=== PATIENT | female | born 1960 | race Caucasian/White ===

== ENCOUNTER 2020-04-21 18:33 | Observation (INO) | payer MEDICARE, MEDICAID ==
--- NOTE | 2020-04-21 19:24 | PDOC.FPRHP ---
- History of Present Illness Chief Complaint: Altered mental status History of Present Illness: This is a 59yo F here today with CC of soreness after a fall. She was transferred from an outside hospital for AMS. She fell last night at her house, she tripped over a raised area. Her friend helped her up. She has since felt very sore. She states she did not hit her head. Denies dizziness, lightheadedness, chest pain, SOB, palpitations, swelling, NVD, fever, chills. Patient is a poor historian. Reports she lives at home alone. Per daughter, patient fell outside and fell forward last night while walking to her car. She went to the ED this AM bc she was feeling confused. Baseline she holds conversation and is mentally alert. She is very weak and has difficulty physically holding a conversation. She was in the ICU last year for 13 weeks 2/2 pacemaker placement and complications including ARF, Peptic ulcer perforation. She does not have a pacemaker, EF is ~20% at last visit. Patient has never OD'd on medications but is on chronic pain medication. She does not follow with pain management per daughter. ED Course: Txfr from [facility] [place], w/u included CTH, CT cervical spine, and CXR that all showed no acute processes. At [facility], given 1 banana bag. - Allergies/Adverse Reactions Allergies Allergy/AdvReac Type Severity Reaction Status Date / Time No Known Drug Allergies Allergy Verified 01/03/20 01:49 - Home Medications Medication Instructions Recorded Confirmed Type Atorvastatin Calcium [Lipitor] 80 mg PO HS 01/03/20 01/03/20 History Biotin 5,000 mcg PO DAILY 01/03/20 01/03/20 History Carvedilol 1 tab PO BID 01/03/20 01/03/20 History Empagliflozin [Jardiance] 25 mg PO BID 01/03/20 01/03/20 History Ezetimibe [Zetia] 10 mg PO HS 01/03/20 01/03/20 History Furosemide [Lasix] 40 mg PO DAILY 01/03/20 01/03/20 History Glimepiride 1 mg PO DAILY 01/03/20 01/03/20 History HYDROcodone/Acetaminophen 1 tab PO PRN PRN 01/03/20 01/03/20 History [Hydrocodone-Acetamin 10-300 mg] Morphine Sulfate [Morphine Sulfate 30 mg PO PRN PRN 01/03/20 01/03/20 History ER] Ondansetron [Zofran ODT] 8 mg PO PRN PRN 01/03/20 01/03/20 History Pantoprazole [Protonix] 40 mg PO BID 01/03/20 01/03/20 History Rivaroxaban [Xarelto] 15 mg PO DAILY 01/03/20 01/03/20 History Sacubitril/Valsartan [Entresto 24 1 tab PO BID 01/03/20 01/03/20 History mg-26 mg Tablet] Sertraline HCl 100 mg PO HS 01/03/20 01/03/20 History busPIRone HCl [Buspirone HCl] 15 mg PO BID 01/03/20 01/03/20 History Amoxicillin/Potassium Clav 1 tab PO Q12HR #10 tablet 01/05/20 Rx [Augmentin] Digoxin [Lanoxin] 0.125 mg PO DAILY #30 tab 01/05/20 Rx Saccharomyces boulardii [Florastor] 250 mg PO DAILY #5 cap 01/05/20 Rx - History PMHx: A fib s/p ablation, T2DM, HLD, chronic pain, CKD PSHx: Ablation, pacemaker, mitral valve replacement, stent placements FHx: noncontributory Social: denies drug use, no smoking hx - Review of Systems ROS unobtainable: other (difficult to obtain due to mental status) General: denies: fever/chills, weight/appetite/sleep changes, night sweats, fatigue Eyes: denies: vision changes ENT: denies: nasal congestion, rhinorrhea Respiratory: denies: cough, congestion, shortness of breath, exercise intolerance Cardiovascular: denies: chest pain, palpitation, edema Gastrointestinal: denies: nausea, vomiting, diarrhea, constipation, abdominal pain Genitourinary: denies: dysuria Skin: denies: rashes Musculoskeletal: denies: pain, swelling Neurological: reports: weakness. denies: seizure - Vital signs BP: 139/89, Pulse: 76, Resp: 18, Temp: 98.9 (Oral), Pain: 4, O2 sat: 98 on (Room Air), Time: 04/21/2020 18:42 wt 63.80 kg - Physical Exam Constitutional: NAD HEENT: normocephalic and atraumatic, grossly normal vision, grossly normal hearing Neck: supple, trachea midline -Neck: in C collar Chest: no-tender to palpation Heart: RRR, normal S1/S2, no murmurs/rubs/gallops Lungs: CTAB, no respiratory distress, good air movement Abdomen: soft, non-tender, bowel sounds present Musculoskeletal: normal structure, normal tone Neurological: no focal deficit, CN II-XII intact, normal sensation -Neurological: 5/5 strength in all extremities, PERRL, no nystagmus Skin: good turgor, capillary refill <2 seconds -Skin: Abrasion over L elbow and BLT knees Heme/Lymphatic: no unusual bruising or bleeding -Psychiatric: poor understanding and insight, difficulty answering questions and asked us to repeat questions several times. She was able to states the place and time of year, name FMR H&P: Results - Labs Result Diagrams: 04/22/20 06:41 04/22/20 06:41 - EKG Interpretation EKG: NSR, no evidence of ischemia FMR H&P: A/P - Plan Metabolic Encephalopathy - 2/2 unknown source, most likely is medication-patient with chronic opioids, possibly 2/2 trauma, illicit drug/etoh use - UDS + for opiates and TCA-patient not on TCA per records - Digoxin level, HIV, RPR for evaluation - f/u CMP in AM for hyponatremia as potential cause - Repeat CTH @ 0000 given fall on blood thinner Hyponatremia - Chronically low, typically 127-135 - monitor with Daily CMP - could be attributing to above DM - Mild SSI - hold home medications - A1c HFrEF - EF 20-25% per ECHO 01/09 - Monitor fluid status Chronic pain - Continue opiates at 10% decreased dose HTN - Continue home meds Patient will need med rec DVT ppx: Home rivaroxaban Code: Full per patient and daughter Diet: NPO pend swallow Dispo: Stroke obs, LOS likely < 48 hrs FMR H&P: Upper Level - Plan Date/Time: 04/21/201920 IKristen MD, have evaluated this patient and agree with findings/plan as outlined by clinical nursing intern resident. Pertinent changes/additions are listed here. This is a 59yo F with PMH of CKD, gastric ulcers, CAD s/p stent placement and Mitral valve replacement who presents as a transfer from [facility] for AMS. Patient is a poor historian but states that she fell last night and has been very sore ever since which is why she went to the hospital. There was a friend present when she fell who helped her up. She states she did not hit her head. Per the ER record, she did hit her head and is on blood thinners. She had a negative CT brain at the outside ER. Patient is uncertain how she got the ER or who called EMS. Per the record she has had alternating mental status changes. VS have been stable in the ER here. She ddi have an elevated BP reading of 139/89. Afebrile. On PE: she had great difficulty with answering questions and we would have to repeat the question several times. She was axox3 though. Neuro exam showed no focal findings. Otherwise, PE normal. CT brain neg. UA neg for infection. Trop neg. Na 129. UDS + for opioids and TCAs. Will admit patient for metabolic encephalopathy 2/2 opioid use vs hyponatremia. Na 129 which is at the patients baseline. UDS positive for opioids and TCAs. Will hold opioids and other mental altering medications. Will repeat a CT at midnight due to patient falling on blood thinners and patient still altered. Initial CT brain and Cspine neg for any abnormalities. Will also get an HIV/RPR to round out work up for AMS. Moderate Hyponatremia - Will work up hyponatremia with urine studies and osmolality. Will give IVF. HTN - patient with elevated BP in the ER, will restart home meds and have PRNs available. Continue other chronic medications. See clinical nursing intern note for full details on history. Dispo: admit obs, stroke; LOS <48hrs Code: FULL PCP: Alba Case discussed with Dr. Guevara Addendum - Attending - Attending Attestation Date/Time: 04/22/202048 I personally evaluated the patient and discussed the management with Dr. Small at time of admission last night. I agree with the History, Examination, Assessment and Plan documented above with any addition or exceptions noted below.
[2020-04-21] MEDS ORDERED: Multivitamins, Adult 10 ML, Thiamine HCl 100 MG, Folic Acid 1 MG in Dextrose 5 %-0.45 %... IV SCH (19:30)
[2020-04-21 20:21] LABS: Bacteria/HPF None Seen HPF (None Seen); Bilirubin Negative (Negative); Blood, Urine Negative (Negative); Clarity Clear (Clear); Glucose, Urine (Dipstick) Greater than 1000 mg/dL (Negative); Ketone, Urine Negative (Negative); Leukocyte Negative Leu/uL (Negative); Nitrite Negative (Negative); Protein, Urine (Dipstick) 70 mg/dL (Neg-Trace); RBC/HPF 0-3 HPF (0-3); Squamous Epithelial None Seen HPF (0-3); Urobilinogen Normal mg/dL (Less than 2); WBC/HPF 0-3 HPF (0-3); pH, Urine 6.5 (5.0-9.0)
[2020-04-21] MEDS ORDERED: Acetaminophen 650 MG Suppository PR PRN ×2 (20:27→20:51)
[2020-04-21] MEDS ORDERED: Bisacodyl 10 MG SUPP PR PRN (20:27)
[2020-04-21] MEDS ORDERED: Dextrose 5% in Water 1,000 ML IV PRN (20:27)
[2020-04-21] MEDS ORDERED: Calcium Carbonate 500 MG ChewTAB PO PRN (20:27)
[2020-04-21] MEDS ORDERED: Dextrose 50% Abboject 50 ML SYRINGE SLOW IVP PRN (20:27)
[2020-04-21] MEDS ORDERED: Senokot S 8.6-50 MG TAB PO PRN (20:27)
[2020-04-21] MEDS ORDERED: Bisacodyl 5 MG TAB PO PRN (20:27)
[2020-04-21 20:29] LABS: Amphetamine Not Detected (NotDetected); Barbiturates Screen Not Detected (NotDetected); Benzodiazepine Screen Not Detected (NotDetected); Cocaine Metabolite Screen Not Detected (NotDetected); Medtox Control Line Valid? VALID (VALID); Medtox Reader # READER 1; Methadone Not Detected (NotDetected); Methamphetamine Not Detected (NotDetected); Opiate Screen Detected (NotDetected); Oxycodone Screen Not Detected (NotDetected); Phencyclidine (PCP) Not Detected (NotDetected); THC/Cannabinoid Screen Not Detected (NotDetected); Tricyclic Screen Detected (NotDetected)
[2020-04-21 20:31] LABS: Acetaminophen Less than 6.0 mcg/mL (10.0-30.0); Alcohol Less than 10 mg/dL (Less than 10); Salicylate Less than 8.0 mg/dL (15.0-30.0)
[2020-04-21] MEDS ORDERED: HumaLOG 300 UNITS/3 ML VIAL SC PRN ×2 (20:34)
[2020-04-21] MEDS ORDERED: Labetalol HCl 100 MG/20 ML VIAL SLOW IVP PRN (20:38)
[2020-04-21] MEDS ORDERED: Sodium Chloride 0.9% 1,000 ML IV SCH (20:45)
[2020-04-21] MEDS ORDERED: Acetaminophen 325 MG TAB PO SCH (21:00)
[2020-04-22 00:33] LABS: Hemoglobin A1c 6.6 % (4.0-6.0)
[2020-04-22] MEDS ORDERED: Lorazepam 2 MG/ML VIAL ONE (00:38)
[2020-04-22 00:41] LABS: Digoxin 0.64 ng/mL (0.8-2.0)
[2020-04-22 00:58] LABS: HIV (1/2) Antibody/Antigen Non-Reactive (NonReactive); HIV 1/2 INDEX 0.12 S/CO (<1.00)
[2020-04-22 01:00] LABS: Syphilis Antibody Nonreactive (Nonreactive); Syphilis Antibody Index 0.05 S/CO (<1.00 Non-Reactive)
[2020-04-22 01:16] LABS: Anion Gap 19 mmol/L (10-20); BUN (Urea Nitrogen) 6 mg/dL (9.8-20.1); Calc. Creatinine Clearance 0 mL/min (70-130); Calcium 8.8 mg/dL (7.8-10.44); Carbon Dioxide 17 mmol/L (22-29); Chloride 96 mmol/L (98-107); Estimated GFR-MDRD 90; Glucose 98 mg/dL (70-105); Potassium 3.9 mmol/L (3.5-5.1); Sodium 128 mmol/L (136-145)
--- NOTE | 2020-04-22 06:25 | PDOC.FM ---
- Subjective Subjective: Patient A&O x4 this morning. Explains she is not sure why she was brought to this hospital, because she sees Dr. Redding (Cardiology) so she usually gets taken to the Med. Now, she says, it's going to be a bad day because no one knows her here and she will have to start all over. Otherwise, she is feeling well. C-collar in place; she reports chronic cervical pain around C6-C7. She denies being altered yesterday; we discussed her fall and she says she fell "face first" over a little step she tripped on. Denies LOC or blacking out. - Objective MAR Reviewed: Yes Result Diagrams: 04/22/20 06:41 04/22/20 06:41 Phys Exam - Physical Examination Constitutional: NAD HEENT: moist MMs Respiratory: no wheezing, clear to auscultation bilateral Cardiovascular: no significant murmur, irregular (PVCs on monitor) sternotomy scar Gastrointestinal: soft, non-tender, no distention Musculoskeletal: no edema (appears euvolemic), pulses present Neurological: non-focal, moves all 4 limbs Psychiatric: normal affect, A&O x 3 Skin: no rash Dx/Plan - Plan Plan: 59 yo F transferred from [place] due to altered mental status: Acute Encephalopathy, likely secondary to concussion vs metabolic vs cardiac arrhythmia - other possible etiologies: arrhythmia, decreased opioid clearance due to aging metabolism, SIADH 2/2 SSRI, although patient may also be hyponatremic from heart failure - UDS + for opiates and TCA: patient not on TCA per records - Digoxin level low, concern for arrhythmia - CT head neg x2 - will call family this AM to see if fall was witnessed. Hypotonic Hyponatremia - pt euvolemic on exam, Urine osm > 100, suspect SIADH - hold SSRI. Recommend taper in outpatient setting - Chronically low, typically 127-135 DM, type 2 - Mild SSI - hold home medications - A1c 6.6 HFrEF - EF 20-25% per ECHO 01/09 - Monitor fluid status Chronic pain - Hold opiates. HTN - Continue home meds DVT ppx: Home rivaroxaban Code: Full per patient and daughter Diet: Heart healthy diet Dispo: Stroke obs, LOS likely < 48 hrs Addendum - Attending - Attending Attestation Date/Time: 04/22/20 [id number] I personally evaluated the patient and discussed the management with Dr. Morales. I agree with the History, Examination, Assessment and Plan documented above with any addition or exceptions noted below. Patient very AOx4, no issues communicating at all. She clearly remembers a mechanical fall (trip over a place she has had trouble with in the past on the sidewalk) and fell and hit her head. Her exam is unremarkable except abrasions as evidence of her fall. Her c-spine was cleared. I believe the most likely option is that she had a mild TBI (concussion) and is now improved. She has had no evidence of arrhythmia during overnight monitoring per the ER. Her hyponatremia may be contributing but is stable. She likely has a combination related to SIADH and ?CHF. Would recommend d/c'ing her SSRI, which we discussed. I offered her longer observation and she declined. We discussed in detail other risks - such as arrhythmia and and she voiced understanding. Ok for dc.
[2020-04-22 07:03] LABS: #Basophils 0.1 thou/uL (0.0-0.2); #Eosinphils 0.1 thou/uL (0.0-0.7); #Lymphocytes 1.3 thou/uL (1.20-3.40); #Monocytes 0.7 thou/uL (0.11-0.59); #Neutrophils 4.6 thou/uL (1.40-6.50); %Basophils 0.9 % (0.0-1.0); %Eosinophils 0.8 % (0.0-10.0); %Lymphocytes 18.8 % (21.0-51.0); %Monocytes 10.3 % (0.0-10.0); %Neutrophils 69.1 % (42.0-75.0); Hemoglobin 11.3 g/dL (12.0-16.0); Mean Corpuscular HGB CONC 30.1 g/dL (32.0-36.0); Mean Corpuscular Hemoglobin 21.6 pg (27.0-31.0); Mean Corpuscular Volume 71.9 fL (78.0-98.0); Mean Platelet Volume 10.3 fL (7.4-10.4); Platelet Count 227 thou/uL (130-400); RBC Distribution Width 17.8 % (11.5-14.5); Red Blood Cell (RBC) Count 5.24 mill/uL (4.20-5.40); White Blood Cell (WBC) Count 6.7 thou/uL (4.8-10.8)
[2020-04-22 07:21] LABS: ALT (SGPT) 14 U/L (8-55); AST (SGOT) 24 U/L (5-34); Albumin 3.3 g/dL (3.5-5.0); Alkaline Phosphatase 171 U/L (40-110); Anion Gap 12 mmol/L (10-20); BUN (Urea Nitrogen) 6 mg/dL (9.8-20.1); Bilirubin, Total 0.7 mg/dL (0.2-1.2); Calc. Creatinine Clearance 0 mL/min (70-130); Calcium 8.7 mg/dL (7.8-10.44); Carbon Dioxide 21 mmol/L (22-29); Chloride 97 mmol/L (98-107); Estimated GFR-MDRD 90; Glucose 80 mg/dL (70-105); Potassium 4.4 mmol/L (3.5-5.1); Protein, Total 6.3 g/dL (6.0-8.3); Sodium 126 mmol/L (136-145)
[2020-04-22 07:25] LABS: Hypochromia MODERATE=16-30 cells (100X) (0-5/hpf); MDiff Complete? YES; Microcytosis MODERATE=15-30 cells (100X) (0-5/hpf); Platelet Morphology Comment Appears Adequate; Polychromasia SLIGHT = 2-3 cells (100X) (0-2/hpf); Reflex for Review?? NO; Target Cells SLIGHT = 2-5 cells (100X) (0-1/hpf)
[2020-04-22 08:06] LABS: Sodium, Urine 101 mmol/L (Not Available); Urea Nitrogen, Random Urine 166 mg/dl
--- NOTE | 2020-04-22 08:19 | CT ---
PRELIMINARY REPORT/[facility]/EMERGENCY AFTER HOURS PROCEDURE: In comparison to prior examination from 04/21/2020, there is no acute interval change. Addendum electronically signed by Rush Valencia MD on April 22, 2020 1:11:13 AM HOUSE VISITOR EXAM: CT Head Without Intravenous Contrast. CLINICAL HISTORY: REPEAT EXAM//FALL ON BLOOD THINNERS, PT IS ALTERED AND NOT COMPLIANT// TECHNIQUE: Axial computed tomography images of the head/brain without intravenous contrast. COMPARISON: None provided. FINDINGS: BRAIN: No acute intraparenchymal hemorrhage. No mass lesion. No CT evidence for acute territorial infarct. N o midline shift or extra-axial collection. Mild generalized cerebral atrophy. VENTRICLES: No hydrocephalus. ORBITS: The orbits are unremarkable. SINUSES AND MASTOIDS: The paranasal sinuses and mastoid air cells are clear. SOFT TISSUES: No significant facial or scalp soft tissue swelling evident. No radiopaque foreign body is seen. BONES: No acute skull fracture. IMPRESSION: No acute intracranial abnormality. ELECTRONICALLY SIGNED BY: Rush Valencia MD Apr 22, 2020 1:09:21 AM HOUSE VISITOR This report is intended for review by the ordering physician only, in accordance of law. If you recei ve this report in error, please call [facility] at [phone]. FINAL REPORT CT BRAIN WITHOUT CONTRAST: I agree with the preliminary report given by Dr. Rush Valencia of [facility]. POS: OFF
[2020-04-22 08:49] LABS: SARS-CoV-2 MS2 Positive; SARS-CoV-2 N Gene Negative; SARS-CoV-2 S Gene Negative; SARS-CoV-2 by NAA Not Detected (NotDetected); SARS-CoV-2 orf1ab Negative
[2020-04-22] MEDS ORDERED: Acetaminophen 325 MG TAB ONE (09:48)
[2020-04-22] MEDS ORDERED: Rivaroxaban 10 MG TAB PO SCH ×2 (11:45→12:00)
[2020-04-22] MEDS ORDERED: Glimepiride 1 MG TAB PO SCH (12:00)
[2020-04-22] MEDS ORDERED: Ezetimibe 10 MG TAB PO SCH (12:00)
[2020-04-22] MEDS ORDERED: Carvedilol 3.125 MG TAB PO SCH (12:00)
[2020-04-22] MEDS ORDERED: busPIRone HCl 10 MG TAB PO SCH (12:00)
[2020-04-22] MEDS ORDERED: Empagliflozin 25 MG TAB PO SCH (12:00)
--- NOTE | 2020-04-23 02:52 | DIS ---
DATE OF ADMISSION: 04/21/2020 DATE OF DISCHARGE: 04/22/2020 RESIDENT: Alfreda Morales MD ADMITTING ATTENDING: Dr. Yane Guevara DISCHARGE ATTENDING: Dr. Frankie Rios PRIMARY DIAGNOSES: 1. Postconcussive syndrome. 2. Syndrome of inappropriate anti-diuretic hormone. 3. Ground level fall. SECONDARY DIAGNOSES: 1. Heart failure with ejection fraction of 20%. 2. Chronic hyponatremia. 3. Type 2 diabetes mellitus. 4. Chronic pain. 5. Hypertension. 6. On chronic anticoagulation for mitral valve replacement. PROCEDURES: 1. Brain CT in [place] [facility]. No acute intracranial abnormalities. 2. Repeat brain CT in [facility]. No acute intracranial abnormalities. 3. CT of the cervical spine. No evidence of fractures or trauma. DISCHARGE MEDICATIONS: 1. Buspirone 15 mg p.o. b.i.d. 2. Sertraline 100 mg p.o. nightly. 3. Entresto 24 to 26 mg one tab p.o. b.i.d. 4. Florastor 250 mg p.o. daily. 5. Xarelto 50 mg p.o. daily. 6. Protonix 40 mg p.o. b.i.d. 7. Zofran 8 mg p.o. p.r.n. 8. Morphine sulfate extended release 30 mg p.o. p.r.n. 9. [place] 10/300 mg one tab p.o. p.r.n. 10. Glimepiride 1 mg p.o. daily. 11. Lasix 40 mg p.o. daily. 12. Zetia 10 mg p.o. nightly. 13. Jardiance 25 mg p.o. b.i.d. 14. Digoxin 0.125 mg p.o. daily. 15. Carvedilol 3.125 mg p.o. b.i.d. 16. Biotin 5000 mcg p.o. daily. 17. Lipitor 80 mg p.o. nightly. 18. Augmentin one tab p.o. q.12 hours. HISTORY OF PRESENT ILLNESS AND HOSPITAL COURSE: This 59-year-old female with a past medical history of severe heart failure, was transferred from [place] after presenting with altered mental status. On Tuesday, she had fallen over a small rise in the sidewalk and fell face first. She denies hitting her head or losing consciousness. However, the next day, she was apparently not acting herself and unable to respond to questions. The fall was unwitnessed. Her neighbor saw her on the ground and helped her up. The patient was complaining of weakness and soreness all over her body. She does have a very severe heart failure with reduced ejection fraction of 20%. Denies palpitations, chest pains prior to fall. An AICD was placed a couple of years ago, but this became infected and was removed last April. The patient follows with Dr. Redding of Cardiology. In the Emergency Room in [place], they performed a CT of the head, CT of the cervical spine, and a chest x-ray that were all normal. When the patient arrived to [facility], she was given a banana bag. A repeat head CT was repeated here since the patient was on anticoagulation and she was still altered to rule out a delayed brain bleed. This scan was negative. The patient was cleared from her C-collar. Initial laboratory values showed mild anemia of hemoglobin 11.3, platelets 227. Chemistry showed hyponatremia at 128, potassium 3.9, chloride 96, carbon dioxide 17, BUN 6, and creatinine 0.67. The patient is diabetic, well controlled as her A1c was 6.6. The patient's BNP was 2085. It appears she last had a BNP at this level in 2011. However, the patient was not experiencing any heart failure exacerbation symptoms. Other labs included urine drug screen positive for opiates and tricyclics. Serum drug screen was negative for alcohol, Tylenol, and aspirin. On the day after admission, the patient was alert and oriented x4. She was feeling well and ready to go home. We discussed the patient's low sodium with her and potential causes being her chronic heart failure as well as possible syndrome of inappropriate diuretic hormone since she takes sertraline for depression. The patient was monitored in the emergency room overnight due to limited bed availability, and the telemetry did not show any arrhythmia or other cardiac abnormality other than intermittent PVCs. DISCHARGE INSTRUCTIONS: Discharge Location: Home Activity: as tolerated. Diet: Diabetic and heart healthy. Follow up with Dr. Willis, PCP within 7 days. Follow up with Dr. Redding for Cardiology as scheduled. OUTPATIENT RECOMMENDATIONS: We recommended to the patient that she ask her primary care doctor about tapering the sertraline and initiating a different antidepressant that may not affect her sodium since she already has low sodium from heart failure. Although this was not the cause of her altered mental status, ultimately we would like to keep her from having a very low sodium in the future. As for her chronic pain, we also recommend that she be titrated off her opiates. As this patient ages, this will only cause more problems for her as her metabolism slows. Job ID: [id number] CLARITA
== END 2020-04-22 13:01 | disposition home or self-care (01) ==
LOC: ERS 18:33 → ERHOLD 19:25
PROVIDERS: ADMIT Family Medicine; ATTEND Family Medicine
DX: F07.81 Postconcussional syndrome (principal); E22.2 Syndrome of inappropriate secretion of antidiuretic hormone; I13.0 Hypertensive heart and chronic kidney disease with heart failure and stage 1 through stage 4 chronic kidney disease, or unspecified chronic kidney disease; E11.22 Type 2 diabetes mellitus with diabetic chronic kidney disease; N18.9 Chronic kidney disease, unspecified; I50.20 Unspecified systolic (congestive) heart failure; D63.1 Anemia in chronic kidney disease; G89.29 Other chronic pain; G93.41 Metabolic encephalopathy; E78.5 Hyperlipidemia, unspecified; I48.91 Unspecified atrial fibrillation; F32.9 Major depressive disorder, single episode, unspecified; F41.9 Anxiety disorder, unspecified; Z79.84 Long term (current) use of oral hypoglycemic drugs; Z79.899 Other long term (current) drug therapy; Z95.2 Presence of prosthetic heart valve; Z95.5 Presence of coronary angioplasty implant and graft; Z95.810 Presence of automatic (implantable) cardiac defibrillator; Z20.828 Contact with and (suspected) exposure to other viral communicable diseases; W01.0XXA Fall on same level from slipping, tripping and stumbling without subsequent striking against object, initial encounter
CPT/HCPCS: 70450; 80048; 80053; 80162; 80306; 80307 ×2; 81003; 82140; 83036; 83735; 83880; 83935; 84300; 84484; 84540; 85025; 86780; 87389; 97139 ×2; U0003; 36415; 87635; G0378; J2060; J3411; J7042

== ENCOUNTER 2020-04-27 21:55 | Observation (INO) | payer MEDICARE, MEDICAID ==
--- NOTE | 2020-04-28 01:14 | PDOC.FPRHP ---
- History of Present Illness Chief Complaint: Altered Mental Status History of Present Illness: This is a 59yo F here today as a transfer from outside ED for AMS. Patient reports that since her fall earlier this week she has "not felt herself." Of note she was recently discharged on Apr 22 and was found to have encephalopathy 2/2 post concussive vs SIADH. She was not making much sense to herself over the past week. She states she would go to her mailbox and then forget what she was doing. As of Tuesday, per the daughter, she has been very different since Tuesday. Daughter states that her house is in "shambles." Daughter went to her moms house earlier today and she was combative, house in disarray and she was sending texts and saying she needs to plan her . Daughter states that she had a lot of pills out on the counter. Someone over HH on the phone told her to change her medications - told her to take "three times the dosage." She reports feeling dizzy. Reports some nausea last week, but not anymore. Denies vomiting, chest pain, palpitations, abd pain, dysuria, vision changes. Reports some blood in her urine but this has resolved. Daughter was in the room and helped with HPI. She has an appointment with her Primary next . ED Course: At [facility] she received 1L NS and 2g Rocephin for concern for UTI - Allergies/Adverse Reactions Allergies Allergy/AdvReac Type Severity Reaction Status Date / Time No Known Drug Allergies Allergy Verified 01/03/20 01:49 - Home Medications Medication Instructions Recorded Confirmed Type Atorvastatin Calcium [Lipitor] 80 mg PO HS 01/03/20 04/28/20 History Biotin 5,000 mcg PO DAILY 01/03/20 04/28/20 History Carvedilol 1 tab PO BID 01/03/20 04/28/20 History Empagliflozin [Jardiance] 25 mg PO BID 01/03/20 04/28/20 History Ezetimibe [Zetia] 10 mg PO HS 01/03/20 04/28/20 History Furosemide [Lasix] 40 mg PO DAILY 01/03/20 04/28/20 History Glimepiride 1 mg PO DAILY 01/03/20 04/28/20 History HYDROcodone/Acetaminophen 1 tab PO PRN PRN 01/03/20 04/28/20 History [Hydrocodone-Acetamin 10-300 mg] Morphine Sulfate [Morphine Sulfate 30 mg PO PRN PRN 01/03/20 04/28/20 History ER] Ondansetron [Zofran ODT] 8 mg PO PRN PRN 01/03/20 04/28/20 History Pantoprazole [Protonix] 40 mg PO BID 01/03/20 04/28/20 History Rivaroxaban [Xarelto] 15 mg PO DAILY 01/03/20 04/28/20 History Sacubitril/Valsartan [Entresto 24 1 tab PO BID 01/03/20 04/28/20 History mg-26 mg Tablet] Sertraline HCl 100 mg PO HS 01/03/20 04/28/20 History busPIRone HCl [Buspirone HCl] 15 mg PO BID 01/03/20 04/28/20 History Amoxicillin/Potassium Clav 1 tab PO Q12HR #10 tablet 01/05/20 04/28/20 Rx [Augmentin] Digoxin [Lanoxin] 0.125 mg PO DAILY #30 tab 01/05/20 04/28/20 Rx Saccharomyces boulardii [Florastor] 250 mg PO DAILY #5 cap 01/05/20 04/28/20 Rx - History PMHx: A fib s/p ablation, T2DM, HLD, chronic pain, CKD PSHx: Ablation, pacemaker, mitral valve replacement, stent placements FHx: noncontributory Social: denies drug use, no smoking hx or alcohol use - Review of Systems General: reports: weight/appetite/sleep changes. denies: fever/chills, night sweats, fatigue Eyes: denies: vision changes ENT: denies: nasal congestion, rhinorrhea Respiratory: denies: cough, congestion, shortness of breath, exercise intolerance Cardiovascular: denies: chest pain, palpitation, edema, paroxysmal nocturnal dyspnea, orthopnea Gastrointestinal: reports: nausea. denies: vomiting, diarrhea, constipation, abdominal pain Genitourinary: denies: dysuria Skin: denies: rashes, lesions Musculoskeletal: denies: pain, tenderness, stiffness, swelling Neurological: reports: other (dizziness). denies: numbness, syncope, seizure, weakness Psychological: reports: anxiety, depression (Denies SI/HI) - Vital signs BP: 133/73, Pulse: 61, Resp: 19, O2 sat: 99 on (Room Air), Time: 04/27/2020 22:04. Temp: 97.9 (Oral), Pain: 2, Time: 04/27/2020 22:12. Wt 68 kg - Physical Exam Constitutional: NAD, awake, alert and oriented, well developed HEENT: normocephalic and atraumatic, PERRLA, EOMI, no scleral icterus, grossly normal vision, grossly normal hearing, MMM Neck: supple, FROM, trachea midline, no LAD Chest: no-tender to palpation, no lesions Heart: normal S1/S2, no murmurs/rubs/gallops -Heart: 2+ pitting edema to mid moreira in BLT LE, irregularly irregular Lungs: CTAB, no respiratory distress, good air movement, no rales/rhonchi, no wheezing, no retractions Abdomen: soft, non-tender, bowel sounds present, no masses/distention Musculoskeletal: normal structure Neurological: no focal deficit Skin: no rash/lesions, good turgor, capillary refill <2 seconds Heme/Lymphatic: no unusual bruising or bleeding -Psychiatric: Patient was erratic, fidgety, and disordered. Was constantly trying to clean off her bedside table. She was tangential in discussion. FMR H&P: Results - Labs Result Diagrams: 04/28/20 05:56 04/28/20 05:56 Lab results: Labs at OSH, UA with squams, rare bacteria, some WBC, SCr elevated to 1.26 from 0.67, Na 126, WBC 10.9, UDS + for opiates, tryciclics, benzos. 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 Will hold Rocephin for now Diet: CC DVT ppx: SCD GI ppx: Pepcid Code: Full PCP: OOT Dispo: Admit tele obs, LOS likely <48 hrs FMR H&P: Upper Level - Plan Date/Time: 04/28/20111 IKristen MD, have evaluated this patient and agree with findings/plan as outlined by manager of international resident. Pertinent changes/additions are listed here. This is a 59yo F with PMH afib s/p ablation, HFrEF, T2DM, HLD, chronic pain, and CKD who presents today for AMS from an outside ER. She was discharged from [facility] for AMS on Apr 22. She was subsequently thought to be encephalopathic due to post concussion s/p fall vs medications vs SIADH. She has "been off" ever since coming home from the hospital. Daughter is present in the room currently - states her mother was acting very erratically earlier today. The patient reports that she talked to a nurse who told her to take "3 times the dose" of her current medications. The patient is really not able to tell you what exactly she took but she has a picture of about 30 medications that she took today. Per daughter, she seems more calmed down right now, but there are still moments that are not her baseline. In the ER, did a CT scan which was negative. Labs significant for low Hgb, Na 12 6, Cr 1.26. Urine - WBCs, squamous, rare bacteria, no nitrites or leukocytes. UDS pos for opiates, TCAs, benzos. Dig level low. Acetaminophen less than 6, salicylates less than 8. PE significant for: mentation is axox3, she does have flight of ideas, rapid rate of speech, poor insight and judgment. Very fidgety on exam. Answers questions appropriately though. Trace edema b/l. Will admit to telemetry, obs for encephalopathy 2/2 polypharmacy. We will hold mental altering medications. We will likely need to significantly decrease the amount of medication that the patient is on. She is on a dangerous combination of opiates with benzos and is improperly taking them. She will need medication management at home as well. We do not suspect infectious source right now. UA with rare bacteria, no urinary symptoms per patient, will stop abx. Hyponatremia likely 2/2 SIADH. Na 126, about at baseline. We will fluid restrict. Will consider weening off of sertraline. Does not appear fluid overloaded, mild edema in b/l extremities. Will continue home lasix. Will continue medications for chronic medications, but hold the mental altering medications as mentioned above. Would also consider discontinue sulfonurea as A1c is <7. See manager of international note for full details. Dispo: admit to tele, obs PCP: Alba connellt next Code: FULL Diet: HH, fluid restrict to 800ml/day Case to be discussed with Dr. Goodman in the AM. Addendum - Attending - Attending Attestation Date/Time: 04/28/20 8319 I personally evaluated the patient and discussed the management with Dr. Small/David. I agree with the History, Examination, Assessment and Plan documented above with any addition or exceptions noted below. Patient here for recurrent AMS. Suspect toxic encephalopathy and polypharmacy. Holding most sedating and psych active meds. Mentation currently at baseline. Monitor sodium levels.
[2020-04-28] MEDS ORDERED: Acetaminophen 650 MG Suppository PR PRN (01:56)
[2020-04-28] MEDS ORDERED: Acetaminophen 325 MG TAB PO PRN (01:56)
[2020-04-28] MEDS ORDERED: Calcium Carbonate 500 MG ChewTAB PO PRN (01:56)
[2020-04-28] MEDS ORDERED: Ondansetron ODT 4 MG TAB PO PRN (01:56)
[2020-04-28] MEDS ORDERED: Ondansetron PF 4 MG/2 ML Vial IVP PRN (01:56)
[2020-04-28 06:21] LABS: #Eosinphils 0.1 thou/uL (0.0-0.7); #Lymphocytes 1.3 thou/uL (1.20-3.40); #Monocytes 0.8 thou/uL (0.11-0.59); #Neutrophils 5.3 thou/uL (1.40-6.50); %Basophils 0.5 % (0.0-1.0); %Eosinophils 1.2 % (0.0-10.0); %Lymphocytes 17.6 % (21.0-51.0); %Monocytes 11.1 % (0.0-10.0); %Neutrophils 69.7 % (42.0-75.0); Mean Corpuscular HGB CONC 30.4 g/dL (32.0-36.0); Mean Corpuscular Hemoglobin 22.3 pg (27.0-31.0); Mean Corpuscular Volume 73.4 fL (78.0-98.0); Mean Platelet Volume 9.1 fL (7.4-10.4); Platelet Count 219 thou/uL (130-400); RBC Distribution Width 17.9 % (11.5-14.5); Red Blood Cell (RBC) Count 4.92 mill/uL (4.20-5.40); White Blood Cell (WBC) Count 7.6 thou/uL (4.8-10.8)
[2020-04-28 06:35] LABS: Anion Gap 12 mmol/L (10-20); BUN (Urea Nitrogen) 11 mg/dL (9.8-20.1); Calc. Creatinine Clearance 0 mL/min (70-130); Calcium 8.3 mg/dL (7.8-10.44); Carbon Dioxide 23 mmol/L (22-29); Chloride 99 mmol/L (98-107); Glucose 115 mg/dL (70-105); Iron 22 ug/dL (50-170); Iron Binding Capacity, Total 406 mcg/dL (265-497); Potassium 3.1 mmol/L (3.5-5.1); Sodium 131 mmol/L (136-145)
[2020-04-28] MEDS ORDERED: HYDROCODONE PO PRN (07:07)
[2020-04-28] MEDS ORDERED: [UNRECOGNIZED DRUG - OTHER] PO PRN (07:07)
[2020-04-28] MEDS ORDERED: ACETAMINOPHEN PO PRN (07:07)
[2020-04-28 08:14] LABS: SARS-CoV-2 MS2 Positive; SARS-CoV-2 N Gene Negative; SARS-CoV-2 S Gene Negative; SARS-CoV-2 by NAA Not Detected (NotDetected); SARS-CoV-2 orf1ab Negative
[2020-04-28] MEDS ORDERED: Non-Formulary Item 1 EACH (Biotin [Biotin] 5,000 MCG Tab.Rapdis) PO SCH (09:00)
[2020-04-28] MEDS ORDERED: Famotidine 20 MG TAB PO SCH (09:00)
[2020-04-28] MEDS ORDERED: BIOTIN 5000 MCG PO SCH (09:00)
[2020-04-28] MEDS ORDERED: Furosemide 20 MG/2 ML VIAL ONE (10:20)
[2020-04-28] MEDS ORDERED: Digoxin 0.125 MG TAB ONE (10:20)
[2020-04-28] MEDS ORDERED: Furosemide 40 MG TAB ONE (10:22)
[2020-04-28] MEDS: Digoxin 0.125 MG TAB PO SCH (10:33)
[2020-04-28] MEDS: Carvedilol 3.125 MG TAB PO SCH ×2 (10:33→21:32)
[2020-04-28] MEDS: Furosemide 40 MG TAB PO SCH (10:34)
[2020-04-28] MEDS: Saccharomyces boulardii 250 MG CAP PO SCH (10:34)
[2020-04-28] MEDS: Rivaroxaban 15 MG TAB PO SCH (10:34)
[2020-04-28 17:23] VITALS: BMI 21.9
[2020-04-28] MEDS ORDERED: Melatonin 3 MG TAB PO PRN (20:29)
[2020-04-28] MEDS ORDERED: Ezetimibe 10 MG TAB PO SCH (21:00)
[2020-04-28] MEDS ORDERED: Atorvastatin Calcium 40 MG TAB PO SCH (21:00)
[2020-04-28] MEDS: busPIRone HCl 10 MG TAB PO SCH (21:31)
[2020-04-28] MEDS: Empagliflozin 25 MG TAB PO SCH (21:32)
[2020-04-29] MEDS ORDERED: HYDROcodone/Acetaminophen 10/325 mg Tablet PO PRN (01:14)
[2020-04-29 06:03] LABS: #Lymphocytes 1.3 thou/uL (1.20-3.40); #Monocytes 0.8 thou/uL (0.11-0.59); #Neutrophils 4.4 thou/uL (1.40-6.50); %Basophils 0.7 % (0.0-1.0); %Eosinophils 0.5 % (0.0-10.0); %Monocytes 11.8 % (0.0-10.0); Mean Corpuscular HGB CONC 29.7 g/dL (32.0-36.0); Mean Corpuscular Hemoglobin 21.5 pg (27.0-31.0); Mean Corpuscular Volume 72.3 fL (78.0-98.0); Mean Platelet Volume 10.4 fL (7.4-10.4); Platelet Count 277 thou/uL (130-400); RBC Distribution Width 18.6 % (11.5-14.5); White Blood Cell (WBC) Count 6.6 thou/uL (4.8-10.8)
[2020-04-29 06:19] LABS: Anion Gap 13 mmol/L (10-20); BUN (Urea Nitrogen) 9 mg/dL (9.8-20.1); Calc. Creatinine Clearance 65 mL/min (70-130); Calcium 9.2 mg/dL (7.8-10.44); Carbon Dioxide 29 mmol/L (22-29); Chloride 100 mmol/L (98-107); Glucose 128 mg/dL (70-105); Potassium 3.1 mmol/L (3.5-5.1); Sodium 139 mmol/L (136-145)
[2020-04-29 08:19] VITALS: BP 122/74; TEMP 98.3
[2020-04-29] MEDS: busPIRone HCl 10 MG TAB PO SCH (08:22)
[2020-04-29] MEDS: Saccharomyces boulardii 250 MG CAP PO SCH (08:22)
[2020-04-29] MEDS: Furosemide 40 MG TAB PO SCH (08:23)
[2020-04-29] MEDS: Carvedilol 3.125 MG TAB PO SCH (08:23)
[2020-04-29] MEDS: Digoxin 0.125 MG TAB PO SCH (08:23)
[2020-04-29] MEDS: Empagliflozin 25 MG TAB PO SCH (08:24)
[2020-04-29] MEDS: Rivaroxaban 15 MG TAB PO SCH (08:26)
--- NOTE | 2020-04-29 08:35 | PDOC.FM ---
- Subjective Subjective: Patient is pain free this morning. Daughter present in room. Daughter reports the patient's house is in "shambles." Daughter works nights but is off the next couple of nights and plans to clean the house before patient r eturns there. Pt lives alone. Patient admits to getting confused about her medications. RN also witnessed this when patient came to the floor. Had extensive discussion regarding naloxone usage, using a pill pack pharmacy, getting rid of any medications especially narcotics by taking them to pharmacy or asking pharmacy for solution mix. - Objective MAR Reviewed: Yes Vital Signs & Weight: Vital Signs (12 hours) Temp Pulse Resp BP Pulse Ox 04/29/20 08:23 82 04/29/20 08:00 98.3 F 82 16 122/74 96 04/29/20 04:00 98.1 F 72 18 105/60 97 04/29/20 00:00 98.1 F 76 18 121/67 97 Weight Weight 56.245 kg I&O: 04/28/20 04/29/20 04/30/20 06:59 06:59 06:59 Intake Total 490 Balance 490 Result Diagrams: 04/29/20 05:35 04/29/20 05:35 Phys Exam - Physical Examination Constitutional: NAD Respiratory: no wheezing, clear to auscultation bilateral Cardiovascular: RRR, no significant murmur Musculoskeletal: no edema Psychiatric: A&O x 3 (anxious affect, very talkative and hard to interrupt) Dx/Plan - Plan Plan: Encephalopathy likely 2/2 polypharmacy, resolved - UDS positive for benzos, patient has not been prescribed benzos per INSURANCE VERIFICATION CLERK Aware check - She is back to mental status baseline Hyponatremia, resolved - Concern for SIADH. Fluid restricted. This has corrected. - Consider for psychogenic polydipsia given patient's anxiety Hypokalemia, - repleted. Recommend f/u outpatient ZAHRAA, resolved T2DM - Mild SSI - discontinue glimepiride due to concern for hypoglycemia and patient not being organized with her meds. Also her A1C was well controlled. HFrEF - EF 20-25% per ECHO 01/09 - Monitor fluid status, start home medications Diet: CC DVT ppx: SCD GI ppx: Pepcid Code: Full PCP: Alba NUNEZ Dispo: plan for discharge today. Discussed patient needing a caregiver at home since she seems unable to do house tasks and keep her house safely clean. She has appt with her PCP on . Discussed possibly starting this w/ CM here; however, since patient is ready for d/c, we recommend she get this setup w/ PCP. Also recommend PCP start pill pack service for the patient for her chronic meds. Addendum - Attending - Attending Attestation Date/Time: 04/29/20 [id number] I personally evaluated the patient and discussed the management with Dr. Morales. I agree with the History, Examination, Assessment and Plan documented above with any addition or exceptions noted below. Patient here for resolved encephalopathy 2/2 polypharmacy. Mentation clear. Discussed at length the need to trim down medication list and institute changes to ensure safe medication admin. Should be stable for discharge with outpatient follow up. We will be stopping several of her psychoactive medications during this admission.
[2020-04-29] MEDS ORDERED: Potassium Chloride 20 MEQ TAB PO SCH (10:45)
--- NOTE | 2020-05-01 09:09 | DIS ---
DATE OF ADMISSION: 04/28/2020 DATE OF DISCHARGE: 04/29/2020 RESIDENT: Alfreda Morales MD ADMITTING ATTENDING: Dr. Goodman. DISCHARGE ATTENDING: Dr. Goomdan. PROCEDURES: None. PRIMARY DIAGNOSES: 1. Acute encephalopathy likely secondary to polypharmacy, resolved. 2. Hyponatremia, resolved. 3. Hypokalemia, resolved. 4. Acute kidney injury, resolved. SECONDARY DIAGNOSES: 1. Type-2 diabetes mellitus. 2. Heart failure with reduced ejection fraction, EF 20% to 25%. 3. Chronic opioid user. DISCHARGE MEDICATIONS: 1. Naloxone 4 mg nasal spray every 5 minutes p.r.n. 2. Ezetimibe 10 mg p.o. at bedtime. 3. Biotin 5000 mcg p.o. daily. 4. Protonix 40 mg p.o. twice daily. 5. Lasix 40 mg p.o. daily. 6. Jardiance 25 mg p.o. twice daily. 7. Carvedilol 3.125 mg p.o. twice daily. 8. Xarelto 15 mg p.o. daily. 9. Ondansetron 8 mg p.o. p.r.n. for nausea. 10. Buspirone 15 mg p.o. twice daily. 11. Entresto 24-26 mg one tab p.o. twice daily. 12. Sertraline 100 mg p.o. at bedtime. 13. Atorvastatin 80 mg p.o. at bedtime. 14. Digoxin 0.125 mg p.o. daily. 15. Florastor 250 mg p.o. daily. 16. Docusate sodium-sennosides tab 2 to 4 tablets p.o. daily p.r.n. for opioid-induced constipation. 17. [place] 10/325 one tab p.o. t.i.d. as needed. DISCONTINUED MEDICATIONS: 1. Glimepiride 2 mg p.o. daily. 2. Morphine sulfate 30 mg p.o. p.r.n. 3. Augmentin 1 tab p.o. q.12 hours. 4. Tizanidine 4 mg p.o. t.i.d. p.r.n. 5. Doxepin 100 mg p.o. at bedtime p.r.n. for insomnia. HISTORY OF PRESENT ILLNESS AND HOSPITAL COURSE: This 59-year-old female was a recent bounce-back, previously admitted for a postconcussive syndrome. She was transferred from [facility] for altered mental status. The patient reports that since her fall, which caused a concussion earlier this week, she has not felt like herself. The patient said she is not making much sense to herself and that she forgot what she was doing. Her daughter has noted that her house is in "shambles" and that the patient was combative while the house was in disarray. The daughter states the patient had many pills on the counter and that the patient was told someone from her insurance on the phone told her to change her medications and take 3 times the dosage. The patient denied hallucinations and suicidal ideation. In the [facility], the patient was thought to have urinary tract infection and received 1 L of normal saline along with 2 g of Rocephin. The patient's mental status spontaneously improved. We held several psychoactive medications. We continued her sertraline. She asked for her buspirone, so that was continued as well. We discontinued her morphine and continued her [place] for her chronic pain. She was fluid restricted and her hyponatremia improved. We initially thought this might be SIADH on her last admission; however, there may be some concern for psychogenic polydipsia given that there was so much improvement with fluid restriction. The patient did have a mild acute kidney injury, which improved. After talking with the daughter and the patient, the daughter is concerned that the patient needs help at home since she lives alone. The patient's medication usage was checked on [facility] and found to be consistent with one provider prescribing opioids. However, the patient did have some benzodiazepines on her urinary drug screen. She did take lorazepam in the past and most likely had an old bottle just lying around, which she took prior to admission. We discussed and recommended to the patient that she follow up with her primary care provider in order to get provider care services at her home. We recommended she start a pill pack pharmacy, so that she does not get confused again. There is concern for an underlying psychiatric disorder. I advised the daughter and patient to take any oral medications that she is not supposed to be taking to the pharmacy to be disposed of. They reported they tried this, and the pharmacy refused to dispose certain medications. Informed them that they can obtain a mixture to mix with opioids that will dissolve pills and then they can safely throw these in the trash. I also educated the patient on naloxone usage. I told her daughter how to use naloxone. I recommended she have a neighbor or someone who lives close to her also learn how to use naloxone. DISCHARGE INSTRUCTIONS: 1. Discharge location, home. 2. Activity, as tolerated. 3. Diet, heart healthy. 4. Follow up with Dr. Willis, her primary care provider, to obtain provider care services and also to reduce polypharmacy. Job ID: [id number] [facility]
== END 2020-04-29 14:02 | disposition home or self-care (01) ==
LOC: ERS 21:55 → ERHOLD 04-28 01:56 → T4-A 04-28 15:37
PROVIDERS: ADMIT Student in an Organized Health Care Education/Training Program; ATTEND Student in an Organized Health Care Education/Training Program
DX: G92 Toxic encephalopathy (principal); T43.95XA Adverse effect of unspecified psychotropic drug, initial encounter; E87.1 Hypo-osmolality and hyponatremia; E87.6 Hypokalemia; E11.22 Type 2 diabetes mellitus with diabetic chronic kidney disease; N18.9 Chronic kidney disease, unspecified; N17.9 Acute kidney failure, unspecified; I50.20 Unspecified systolic (congestive) heart failure; F11.90 Opioid use, unspecified, uncomplicated; F41.9 Anxiety disorder, unspecified; F32.9 Major depressive disorder, single episode, unspecified; E78.5 Hyperlipidemia, unspecified; I48.91 Unspecified atrial fibrillation; Z79.01 Long term (current) use of anticoagulants; Z79.84 Long term (current) use of oral hypoglycemic drugs; Z79.899 Other long term (current) drug therapy; Z95.0 Presence of cardiac pacemaker; Z95.2 Presence of prosthetic heart valve; Z20.828 Contact with and (suspected) exposure to other viral communicable diseases
CPT/HCPCS: 36415; 80048; 82728; 83540; 83550; 85025; 87635; 94760; 96374; G0378; J1940; J2405; U0003

== ENCOUNTER 2020-10-07 05:42 | Observation (INO) | payer MEDICARE, MEDICAID ==
[2020-10-07] MEDS ORDERED: Heparin 10,000 UNITS/ 10 ML VIAL ONE ×2 (06:38→08:20)
[2020-10-07] MEDS ORDERED: Scopolamine 1.5 mg/72 hour Patch ONE (07:01)
[2020-10-07] MEDS ORDERED: Fentanyl 100 MCG/2 ML VIAL ONE ×3 (07:02→12:41)
[2020-10-07] MEDS ORDERED: Midazolam HCl 2 mg/2 ml Vial ONE (07:02)
[2020-10-07] MEDS ORDERED: PROPOFOL 200 MG/20 ML VIAL ONE (07:19)
[2020-10-07] MEDS ORDERED: Metoclopramide HCl 10 MG/2 ML VIAL ONE (07:19)
[2020-10-07] MEDS ORDERED: Lidocaine 1% PF 5 ML VIAL ONE (07:19)
[2020-10-07] MEDS ORDERED: PHENYLEPHRINE-NS 100 MCG/ML 10 ML SYRINGE ONE (07:19)
[2020-10-07] MEDS ORDERED: Glycopyrrolate 0.2 MG/ML 5 ML SYRINGE ONE (07:19)
[2020-10-07] MEDS ORDERED: Rocuronium Bromide 10 MG/ML (10ML VIAL) ONE (07:19)
[2020-10-07] MEDS ORDERED: Ondansetron PF 4 MG/2 ML Vial ONE (07:19)
[2020-10-07] MEDS ORDERED: Phenylephrine 10 MG/ML VIAL ONE ×2 (08:04→09:32)
[2020-10-07] MEDS ORDERED: Heparin 25,000 units/D5W 500 ML ONE (08:58)
[2020-10-07] MEDS ORDERED: Famotidine/PF 20 mg/2ml Vial ONE (09:32)
[2020-10-07] MEDS ORDERED: SUGAMMADEX SODIUM 200 MG/2 ML VIAL ONE (10:46)
[2020-10-07] MEDS ORDERED: Ondansetron ODT 4 MG TAB PO PRN (10:51)
[2020-10-07] MEDS ORDERED: HYDROcodone/Acetaminophen 10/325 mg Tablet PO PRN (10:51)
[2020-10-07] MEDS ORDERED: Protamine Sulfate 50 MG/5 ML VIAL ONE ×2 (10:53)
[2020-10-07] MEDS ORDERED: Promethazine 25 MG TAB PO PRN (10:58)
[2020-10-07] MEDS ORDERED: Temazepam 15 MG CAP PO PRN (10:58)
[2020-10-07] MEDS ORDERED: Cepastat Lozenges 1 LOZ PO PRN (10:58)
[2020-10-07] MEDS ORDERED: Benzonatate 100 MG CAP PO PRN (10:58)
[2020-10-07] MEDS ORDERED: Acetaminophen 500 MG TAB PO PRN (10:58)
[2020-10-07] MEDS ORDERED: HYDROcodone/Acetaminophen 10/325 mg Tablet ONE (12:49)
[2020-10-07 15:41] VITALS: BMI 23.1
[2020-10-07] MEDS: tiZANidine HCl 4 MG TAB PO SCH ×2 (16:28→21:39)
[2020-10-07] MEDS: Carvedilol 6.25 MG TAB PO SCH (16:29)
[2020-10-07] MEDS ORDERED: Rivaroxaban 15 MG TAB PO SCH (21:00)
[2020-10-08] MEDS ORDERED: Amiodarone 450 MG in Dextrose 5% in Water 250 ML IVPB SCH (08:00)
[2020-10-08] MEDS ORDERED: Glimepiride 2 MG TAB PO SCH (08:00)
[2020-10-08] MEDS: tiZANidine HCl 4 MG TAB PO SCH (08:01)
[2020-10-08] MEDS: Carvedilol 6.25 MG TAB PO SCH (08:01)
[2020-10-08] MEDS ORDERED: Amiodarone 150 MG, Admixture Fee 1 EACH in Dextrose 5% in Water 100 ML IVPB SCH (08:15)
[2020-10-08 09:11] LABS: ALT (SGPT) 28 U/L (8-55); AST (SGOT) 42 U/L (5-34); Albumin 3.7 g/dL (3.4-4.8); Alkaline Phosphatase 221 U/L (40-110); Bilirubin, Direct 0.3 mg/dL (0.1-0.3); Bilirubin, Total 0.6 mg/dL (0.2-1.2); Magnesium 1.9 mg/dL (1.6-2.6); Potassium 4.5 mmol/L (3.5-5.1); Protein, Total 6.9 g/dL (5.8-8.1)
[2020-10-08 11:34] VITALS: BP 125/89; TEMP 99.3
== END 2020-10-08 11:30 | disposition home or self-care (01) ==
LOC: CCL 05:42 → 2SW 07:44
PROVIDERS: ADMIT Internal Medicine Cardiovascular Disease; ATTEND Internal Medicine Cardiovascular Disease
PROC: 02583ZZ Destruction of Conduction Mechanism, Percutaneous Approach (ICD-10-PCS; principal; 2020-10-07)
PROC: 02K83ZZ Map Conduction Mechanism, Percutaneous Approach (ICD-10-PCS; 2020-10-07)
PROC: 4A023FZ Measurement of Cardiac Rhythm, Percutaneous Approach (ICD-10-PCS; 2020-10-07)
PROC: 4A0234Z Measurement of Cardiac Electrical Activity, Percutaneous Approach (ICD-10-PCS; 2020-10-07)
DX: I48.19 Other persistent atrial fibrillation (principal); I48.4 Atypical atrial flutter; I49.5 Sick sinus syndrome; I11.0 Hypertensive heart disease with heart failure; I50.22 Chronic systolic (congestive) heart failure; E78.5 Hyperlipidemia, unspecified; I25.2 Old myocardial infarction; I25.10 Atherosclerotic heart disease of native coronary artery without angina pectoris; G89.29 Other chronic pain; M54.2 Cervicalgia; M48.02 Spinal stenosis, cervical region; E11.9 Type 2 diabetes mellitus without complications; Z87.891 Personal history of nicotine dependence; Z79.01 Long term (current) use of anticoagulants; Z79.84 Long term (current) use of oral hypoglycemic drugs; Z79.899 Other long term (current) drug therapy; Z95.2 Presence of prosthetic heart valve; Z95.5 Presence of coronary angioplasty implant and graft
CPT/HCPCS: 76942; 80076; 83735; 84132; 84443; 85347 ×2; 92960; 93005; 93312; 93613; 93656; 93657; 93662; 96374; C1730; C1732; C1894; C2630; G0378 ×2; 93010; J0282; J1644; J2250; J2370; J2405; J2704; J2720; J2765; J3010; J7070; S0028

== ENCOUNTER 2022-05-25 10:27 | Day surgery (SDC) | payer OTHER, MEDICAID ==
[2022-05-20 15:51] VITALS: BMI 22.3
[2022-05-25] MEDS ORDERED: Protamine Sulfate 50 MG/5 ML VIAL ONE (11:53)
[2022-05-25] MEDS ORDERED: Heparin 10,000 UNITS/ 10 ML VIAL ONE (11:53)
[2022-05-25] MEDS ORDERED: Heparin 25,000 units/D5W 500 ML ONE (11:53)
[2022-05-25] MEDS ORDERED: PHENYLEPHRINE-NS 100 MCG/ML 10 ML SYRINGE ONE (13:01)
[2022-05-25] MEDS ORDERED: ePHEDrine 50 MG/ML VIAL ONE (13:01)
[2022-05-25] MEDS ORDERED: Dexamethasone 20 MG/5 ML VIAL ONE (13:01)
[2022-05-25] MEDS ORDERED: Lidocaine 1% PF 5 ML VIAL ONE (13:01)
[2022-05-25] MEDS ORDERED: Ondansetron PF 4 MG/2 ML Vial ONE (13:01)
[2022-05-25] MEDS ORDERED: Rocuronium Bromide 10 MG/ML (10ML VIAL) ONE (13:01)
[2022-05-25] MEDS ORDERED: PROPOFOL 200 MG/20 ML VIAL ONE (13:01)
[2022-05-25] MEDS ORDERED: Succinylcholine Chloride 100 MG/5 ML SYRINGE FS ONE (13:01)
[2022-05-25] MEDS ORDERED: Phenylephrine 10 MG/ML VIAL ONE (13:30)
[2022-05-25] MEDS ORDERED: Norepinephrine 4 MG/4 ML VIAL ONE (14:02)
[2022-05-25] MEDS ORDERED: FENTANYL 50 MCG/ML 1 ML VIAL ONE (14:44)
== END 2022-05-25 17:53 | disposition home or self-care (01) ==
LOC: SDC 10:27
PROVIDERS: ATTEND Internal Medicine Cardiovascular Disease
PROC: 02583ZZ Destruction of Conduction Mechanism, Percutaneous Approach (ICD-10-PCS; principal; 2022-05-25)
PROC: 02K83ZZ Map Conduction Mechanism, Percutaneous Approach (ICD-10-PCS; 2022-05-25)
PROC: 4A023FZ Measurement of Cardiac Rhythm, Percutaneous Approach (ICD-10-PCS; 2022-05-25)
PROC: 4A0234Z Measurement of Cardiac Electrical Activity, Percutaneous Approach (ICD-10-PCS; 2022-05-25)
DX: I48.4 Atypical atrial flutter (principal); I48.19 Other persistent atrial fibrillation; I49.5 Sick sinus syndrome; R00.1 Bradycardia, unspecified; I50.22 Chronic systolic (congestive) heart failure; I25.5 Ischemic cardiomyopathy; I25.10 Atherosclerotic heart disease of native coronary artery without angina pectoris; E78.5 Hyperlipidemia, unspecified; I25.2 Old myocardial infarction; M48.02 Spinal stenosis, cervical region; E11.9 Type 2 diabetes mellitus without complications; Z87.891 Personal history of nicotine dependence; Z79.01 Long term (current) use of anticoagulants; Z79.84 Long term (current) use of oral hypoglycemic drugs; Z79.899 Other long term (current) drug therapy; Z88.8 Allergy status to other drugs, medicaments and biological substances; Z95.2 Presence of prosthetic heart valve; Z95.810 Presence of automatic (implantable) cardiac defibrillator
CPT/HCPCS: 85347 ×2; 93005; 93656; J3010; C1732; C1759; C1760; C1769; C1894; C2630; J1100; J1644; J2370; J2405; J2704; J2720; J3490